=== PATIENT | female | born 1995 | race Caucasian/White ===

== ENCOUNTER 2019-04-25 09:15 | Emergency (ER) | payer OTHER ==
--- NOTE | 2019-04-25 09:42 | ER Document Report ---
ED Medical Screen (RME) - General Chief Complaint: Vaginal Bleeding Stated Complaint: VAGINAL BLEEDING/CRAMPING Time Seen by Provider: 04/25/19 09:42 Mode of Arrival: Ambulatory Information source: Patient Notes: 23-year-old female presenting to the emergency department at approximately 9 weeks gestation with complaints of vaginal bleeding x2 days. Patient also reports low abdominal cramping, denies passage of any clots. Patient calm, cooperative, abdomen soft, nontender. I have greeted and performed a rapid initial assessment of this patient. A comprehensive ED assessment and evaluation of the patient, analysis of test results and completion of the medical decision making process will be conducted by additional ED providers. I have specifically instructed the patient or f amily members with the patient to immediately return to any nursing staff should anything change in the patient's condition or with their chief complaint. Physical Exam - Vital signs Vitals: Temp Pulse Resp BP Pulse Ox 98.1 F 75 16 123/95 H 96 04/25/19 09:24 04/25/19 09:24 04/25/19 09:24 04/25/19 09:24 04/25/19 09:24 Course - Vital Signs Vital signs: Temp Pulse Resp BP Pulse Ox 98.1 F 75 16 123/95 H 96 04/25/19 09:24 04/25/19 09:24 04/25/19 09:24 04/25/19 09:24 04/25/19 09:24
[2019-04-25 10:07] LABS: ABSOLUTE EOSINOPHILS # (AUTO) 0.1 10^3/uL (0.0-0.6); ABSOLUTE MONOCYTES (AUTO) 0.3 10^3/uL (0.1-1.4); ABSOLUTE NEUT (AUTO) 4.4 10^3/uL (1.7-8.2); BASOPHILS % (AUTO) 0.4 % (0-2); EOSINOPHILS % (AUTO) 0.9 % (0-6); HEMATOCRIT 38.1 % (36.0-47.0); HEMOGLOBIN 12.9 g/dL (12.0-15.5); LYMPHOCYTES % (AUTO) 28.6 % (13-45); MEAN CORPUSCULAR HEMOGLOBIN 31.8 pg (27.0-33.4); MEAN CORPUSCULAR HGB CONC 33.9 g/dL (32.0-36.0); MEAN CORPUSCULAR VOLUME 94 fl (80-97); PLATELET COUNT 142 10^3/uL (150-450); RED BLOOD COUNT 4.07 10^6/uL (3.72-5.28); RED CELL DISTRIBUTION WIDTH 13.2 % (11.5-14.0); SEGMENTED NEUTROPHILS % (AUTO) 65.1 % (42-78); TOTAL CELLS COUNTED % (AUTO) 100 %; WHITE BLOOD COUNT 6.8 10^3/uL (4.0-10.5)
[2019-04-25 10:09] LABS: APPEARANCE,URINE CLEAR; BILIRUBIN,URINE NEGATIVE (NEGATIVE); COLOR,URINE YELLOW; GLUCOSE, URINE NEGATIVE (NEGATIVE); KETONES,URINE NEGATIVE (NEGATIVE); LEUKOCYTE ESTERASE,URINE NEGATIVE (NEGATIVE); NITRITE,URINE NEGATIVE (NEGATIVE); PROTEIN,URINE NEGATIVE (NEGATIVE); UROBILINOGEN,URINE NEGATIVE mg/dL (<2.0)
[2019-04-25 10:29] LABS: ALBUMIN 4.8 g/dL (3.5-5.0); ALKALINE PHOSPHATASE 51 U/L (38-126); ANION GAP 11 (5-19); ASPARTATE AMINO TRANSFERASE 24 U/L (14-36); BILIRUBIN,TOTAL 0.6 mg/dL (0.2-1.3); BLOOD UREA NITROGEN 9 mg/dL (7-20); CALCIUM 10.2 mg/dL (8.4-10.2); CARBON DIOXIDE 28 mmol/L (22-30); CHLORIDE 102 mmol/L (98-107); GLUCOSE 83 mg/dL (75-110); POTASSIUM 4.2 mmol/L (3.6-5.0); TOTAL PROTEIN 8.1 g/dL (6.3-8.2)
--- NOTE | 2019-04-25 11:03 | RADIOLOGY REPORT (SQ) ---
EXAM DESCRIPTION: U/S OB TRANSVAGINAL W/O DOP COMPLETED DATE/TIME: 04/25/2019 10:43 am REASON FOR STUDY: vag bleed, 9 weeks preg COMPARISON: None. TECHNIQUE: Transvaginal static and realtime grayscale images acquired of the pelvis. Additional zuri cted spectral and color Doppler images recorded. All images stored on PACs. bHCG: Pending. CLINICAL DATES: LMP 02/23/2019. EGA based on LMP 8 weeks 5 days. CHANTALE based on LMP 11/30/2019. LIMITATIONS: None. FINDINGS: FETUS: Single Living intrauterine . ULTRASOUND EGA: 9 weeks 5 days based on mean sac diameter. ULTRASOUND CHANTALE: 11/23/2019. FHR: N/A. SURVEY: Too early to assess. AMNIOTIC FLUID: Too early to assess. PLACENTA: Too early to assess. SUBCHORIONIC BLEED: No. UTERUS: The uterus is oriented retroverted and measures 9.4 x 6.6 x 6 cm. There is an intrauterine g estational sac that contains a yolk sac. The mean sac diameter is 2.5 cm. CERVICAL LENGTH: 2.4 cm. Closed. RIGHT ADNEXA: The right ovary measures 3.7 x 2.5 x 1.9 cm. . There is a 1.8 x 1.5 x 1.4 cm hypoecho ic structure within the ovary that could represent a corpus luteum cyst. There is no free fluid in t he right adnexum. LEFT ADNEXA: Unable to visualize the left ovary. There is no adnexal mass. FREE FLUID: None. OTHER: No other finding. IMPRESSION: Intrauterine gestational sac that contains a yolk sac but no pole. The absence of an embryo within a gestational sac with a MSD of 16-24 mm is suspicious for failure. Syl elation with serial beta HCG and a follow-up ultrasound are recommended. Trimester of : First trimester - 0 to 13 weeks. TECHNICAL DOCUMENTATION: JOB ID: [id number] [employer]- All Rights Reserved rev-08/17 Reading location - IP/workstation name: [email or web address]
--- NOTE | 2019-04-25 12:21 | ER Document Report ---
ED General - General Chief Complaint: Vag Bleeding, +preg <12wks Stated Complaint: VAGINAL BLEEDING/CRAMPING Time Seen by Provider: 04/25/19 09:42 Mode of Arrival: Ambulatory Information source: Patient Notes: This 23-year-old female G3, P1 approximately 9 weeks presents emergency department with complaints of vaginal bleeding x2 with lower abdominal cramps. She denies fever vomiting diarrhea. Denies trauma. Denies dysuria. Reports that her abdominal cramping seems to be getting worse. TRAVEL OUTSIDE OF THE [place] IN LAST 30 DAYS: No - HPI Onset: Other Onset/Duration: Persistent Quality of pain: Cramping Associated symptoms: None Exacerbated by: Denies Relieved by: Denies Similar symptoms previously: Yes Recently seen / treated by doctor: No - Related Data Allergies/Adverse Reactions: No Known Allergies Allergy (Verified 04/25/19 09:44) Home Medications: 1 tab daily. [facility]/ Past Medical History - General Information source: Patient Last Menstrual Period: G3, P1 approximately 9 weeks - Social History Smoking Status: Never Smoker Chew tobacco use (# tins/day): No Frequency of alcohol use: None Drug Abuse: None Lives with: Family Family History: None Patient has suicidal ideation: No Patient has homicidal ideation: No - Medical History Medical History: Negative - Past Medical History Cardiac Medical History: Denies: Hx Coronary Artery Disease, Hx Hypertension Pulmonary Medical History: Denies: Hx Asthma Endocrine Medical History: Denies: Hx Diabetes Mellitus Type 2 Surgical Hx: Negative Review of Systems - Review of Systems Notes: Review HPI for review of systems., All other systems negative Physical Exam - Vital signs Vitals: Temp Pulse Resp BP Pulse Ox 98.1 F 75 16 123/95 H 96 04/25/19 09:24 04/25/19 09:24 04/25/19 09:24 04/25/19 09:24 04/25/19 09:24 - Notes Notes: PHYSICAL EXAMINATION: GENERAL: Well-appearing and in no acute distress patient laughing HEAD: Atraumatic, normocephalic. EYES: extraocular movements intact, sclera anicteric, conjunctiva are normal. ENT: nares patent, Moist mucous membranes. NECK: Normal range of motion, supple LUNGS: Respiratory rate even unlabored HEART: Regular rate ABDOMEN: Reports abdominal cramping EXTREMITIES: Normal range of motion NEUROLOGICAL: Cranial nerves grossly intact. PSYCH: Normal mood, normal affect. SKIN: Warm, no visible rashes or sores - General General appearance: Appears well, Alert In distress: None - Patient laughing Course - Re-evaluation Re-evalutation: 04/25/19 12:37 23-year-old female G3, P1 presents with abdominal cramping vaginal bleeding. Ultrasound shows intrauterine gestational sac with no pole. Suspicious for failure. Labs unremarkable, patient A+, patient and and her best friend were instructed on results. Patient did give permission for all visitors to be in the room during news. She was instructed on the importance of monitoring bleeding return for worsening symptoms worsening abdominal pain. She was instructed on Alpha for pain. She reports her SANITATION MANAGER is Dr. Caldwell, she was instructed to follow-up with him. She was instructed to return here for increased pain and increased vaginal bleeding concerns. She verbalized understanding to all instructions. Patient reports that she has been through this before. Patient calm laughing. Obstetrics Ultrasound 04/25/19 09:43 IMPRESSION: Intrauterine gestational sac that contains a yolk sac but no pole. The absence of an embryo within a gestational sac with a MSD of 16-24 mm is suspicious for failure. Correlation with serial beta HCG and a follow-up ultrasound are recommended. Trimester of : First trimester - 0 to 13 weeks. Laboratory 04/25/19 04/25/19 04/25/19 09:45 09:45 09:45 WBC 6.8 RBC 4.07 Hgb 12.9 Hct 38.1 MCV 94 MCH 31.8 MCHC 33.9 RDW 13.2 Plt Count 142 L Lymph % (Auto) 28.6 [place] % (Auto) 5.0 Eos % (Auto) 0.9 Baso % (Auto) 0.4 Absolute Neuts (auto) 4.4 Absolute Lymphs (auto) 2.0 Absolute Monos (auto) 0.3 Absolute Eos (auto) 0.1 Absolute Basos (auto) 0.0 Seg Neutrophils % 65.1 Sodium 140.5 Potassium 4.2 Chloride 102 Carbon Dioxide 28 Anion Gap 11 BUN 9 Creatinine 0.64 Est GFR ( Amer) > 60 Est GFR (MDRD) Non-Af > 60 Glucose 83 Calcium 10.2 Total Bilirubin 0.6 Direct Bilirubin 0.0 Neonat Total Bilirubin Not Reportable Neonat Direct Bilirubin Not Reportable Neonat Indirect Bili Not Reportable AST 24 ALT 20 Alkaline Phosphatase 51 Total Protein 8.1 Albumin 4.8 Beta HCG, Quant 36412.00 H Total Beta HCG POSITIVE Urine Color Urine Appearance Urine pH Ur Specific Linch Urine Protein Urine Glucose (UA) Urine Ketones Urine Blood Urine Nitrite Urine Bilirubin Urine Urobilinogen Ur Leukocyte Esterase Urine WBC (Auto) Urine RBC (Auto) Urine Mucus (Auto) Urine Ascorbic Acid Blood Type A POSITIVE Rhogam Indicated RHOGAM NOT INDICATED 04/25/19 09:45 WBC RBC Hgb Hct MCV MCH MCHC RDW Plt Count Lymph % (Auto) [place] % (Auto) Eos % (Auto) Baso % (Auto) Absolute Neuts (auto) Absolute Lymphs (auto) Absolute Monos (auto) Absolute Eos (auto) Absolute Basos (auto) Seg Neutrophils % Sodium Potassium Chloride Carbon Dioxide Anion Gap BUN Creatinine Est GFR ( Amer) Est GFR (MDRD) Non-Af Glucose Calcium Total Bilirubin Direct Bilirubin Neonat Total Bilirubin Neonat Direct Bilirubin Neonat Indirect Bili AST ALT Alkaline Phosphatase Total Protein Albumin Beta HCG, Quant Total Beta HCG Urine Color YELLOW Urine Appearance CLEAR Urine pH 8.0 Ur Specific Linch 1.010 Urine Protein NEGATIVE Urine Glucose (UA) NEGATIVE Urine Ketones NEGATIVE Urine Blood SMALL H Urine Nitrite NEGATIVE Urine Bilirubin NEGATIVE Urine Urobilinogen NEGATIVE Ur Leukocyte Esterase NEGATIVE Urine WBC (Auto) 0 Urine RBC (Auto) 0 Urine Mucus (Auto) RARE Urine Ascorbic Acid NEGATIVE Blood Type Rhogam Indicated 04/25/19 14:58 - Vital Signs Vital signs: Temp Pulse Resp BP Pulse Ox 98.6 F 76 16 105/66 100 04/25/19 12:42 04/25/19 12:42 04/25/19 09:24 04/25/19 12:42 04/25/19 12:42 - Laboratory Result Diagrams: 04/25/19 09:45 04/25/19 09:45 Laboratory results interpreted by me: 04/25/19 04/25/19 04/25/19 09:45 09:45 09:45 Plt Count 142 L Beta HCG, Quant 01541.00 H Urine Blood SMALL H - Diagnostic Test Radiology reviewed: Reports reviewed Discharge - Discharge Clinical Impression: Vaginal bleeding, Miscarriage, threatened, early Condition: Stable Disposition: HOME, SELF-CARE Instructions: [facility] Operator Doctors Additional Instructions: *You have been evaluated for vaginal bleeding, Your ultrasound showed an intrauterine gestational sac with no heart activity. This is suspicious for failure *You will need to have a repeat level on SundayApril 27 *You will also need a repeat Ultrasound *Follow up with your SANITATION MANAGER within one week for evaluation *Obtain [facility] [place] [facility] on April 27. You may contact Pat at [phone] 2 hours after your test from [phone] Sunday for your results *Return to ED for worsening condition, changes, needs, increasing abdominal pain. Increasing bleeding. Forms: Follow-Up Laboratory Testing
[2019-04-25] MEDS ORDERED: HYDROCODONE/ACETAMINOPHEN 5-325 MG (6 TAB/ER DISP) PO PRN (12:27)
[2019-04-25 12:51] VITALS: BP 105/66
== END 2019-04-25 12:51 | disposition home or self-care (01) ==
LOC: ER 09:15
DX: O20.0 Threatened abortion (principal); O26.891 Other specified pregnancy related conditions, first trimester; R10.30 Lower abdominal pain, unspecified; Z3A.09 9 weeks gestation of pregnancy
CPT/HCPCS: 36415; 76817; 80053; 81001; 84702; 85025; 86900; 86901; 99284